=== PATIENT | female | born 1950 | race American Indian/Alaskan Native ===

== ENCOUNTER 2020-07-04 11:21 | Emergency (ER) | payer MEDICARE ==
[2020-07-04] MEDS ORDERED: SODIUM CHLORIDE 0.9% 1000 ML 1,000 ML IV ONE (11:51)
[2020-07-04 13:44] LABS: Hematocrit 25.6 % (30.3-42.9); Mean Corpuscular HGB Conc 31 % (30-34); Mean Corpuscular Volume 98 fl (79-97); Red Blood Count 2.62 M/mm3 (3.65-5.03)
[2020-07-04 13:50] LABS: Albumin 2.6 g/dL (3.9-5); Calcium 10.2 mg/dL (8.4-10.2)
[2020-07-04 13:53] LABS: INR 1.98 (0.87-1.13)
[2020-07-04 14:02] LABS: Partial Thromboplastin Time 68.3 Sec. (24.2-36.6)
--- NOTE | 2020-07-04 14:11 | Emergency Department Report ---
ED CPR HPI - General Chief Complaint: Cardiac Arrest/CPR Stated Complaint: CARDIAC ARREST Time Seen by Provider: 07/04/20 11:41 Source: family, EMS Mode of arrival: Stretcher Limitations: Other - History of Present Illness Initial Comments: Chief complaint: Cardiac arrest HPI: This is a 70-year-old female with history of COPD, breast cancer in remission, end-stage renal disease on hemodialysis Sunday who presents in cardiac arrest. Daughter and son provided history. Patient had slurred speech. She seen lethargic. She had fecal incontinence. [facility] health team and transport team evaluated patient. Verbalized that medical staff realized that patient needed emergent care. When EMS arrived, patient was receiving chest compressions. Patient had stopped breathing. No pulse. PEA detected by paramedics. Patient was ventilated to Jacob airway. Patient received epinephrine. Blood sugar 23 on scene. Daughter and son provided further history: Patient was admitted for 3 weeks in May outside [facility]. Patient required mechanical ventilation for respiratory failure. Patient was discharged home. shelter facility was recommended. Daughter arranged for daily home health visits. Patient's last hemodialysis session was on . Patient was scheduled to receive dialysis today. Complaint: stopped breathing Place: home Initial Findings in the Field: no respirations, PEA ROSC in the Field: No Treatments Prior to Arrival: other airway device (Jacob airway), epinephrine mgs # (Epinephrine) - Related Data Allergies Allergy/AdvReac Type Severity Reaction Status Date / Time doxycycline Allergy Unknown Verified 07/04/20 12:25 lisinopril Allergy Unknown Verified 07/04/20 12:25 mupirocin [From Bactroban] Allergy Unknown Verified 07/04/20 12:25 sulfamethoxazole Allergy Unknown Verified 07/04/20 12:25 [From Bactrim] trimethoprim [From Bactrim] Allergy Unknown Verified 07/04/20 12:25 ED Review of Systems ROS: Stated complaint: CARDIAC ARREST Other details as noted in HPI Comment: Unobtainable due to pts medical conditions (Cardiac arrest) ED Past Medical Hx - Past Medical History Previous Medical History?: Yes Hx Diabetes: Yes Hx Renal Disease: Yes (End-stage renal disease) Hx COPD: Yes - Surgical History Past Surgical History?: Yes Additional Surgical History: Bilateral mastectomy, lymph node dissection, AV fistula - Social History Smoking Status: Never Smoker ED Physical Exam - General Limitations: Other (Cardiac arrest unresponsive patient) General appearance: other - Head Head exam: Present: atraumatic, normocephalic - Eye Eye exam: Present: other (Fixed dilated pupils) - ENT ENT exam: Present: mucous membranes dry, other (No oropharyngeal lesions, pale mucosa) - Neck Neck exam: Present: normal inspection, full ROM, other (Prominent JVD in supine position) - Respiratory Respiratory exam: Present: other (Equal breath sounds with bag ventilation,) - Cardiovascular Cardiovascular Exam: Present: regular rate, normal rhythm, other (Tachycardia, palpable carotid pulse). Absent: systolic murmur, diastolic murmur - GI/Abdominal GI/Abdominal exam: Present: soft, distended, other (Severe abdominal distention, dull to percussion) - Extremities Exam Extremities exam: Present: other (No deformity, no traumatic injury, hyperpigmented thickened skin in the pretibial regions) - Neurological Exam Neurological exam: Present: other (No response to voice or pain, body tone is limp) - Psychiatric Psychiatric exam: Present: other (Eyes half open, no attempt to speak) - Skin Skin exam: Present: intact, pallor ED Course Vital Signs 07/04/20 12:23 Pulse Rate 84 O2 Sat by Pulse 94 Oximetry ED Medical Decision Making - Lab Data Result diagrams: 07/04/20 12:35 07/04/20 12:35 Laboratory Results - last 24 hr 07/04/20 07/04/20 07/04/20 12:35 12:35 12:35 WBC 2.7 L RBC 2.62 L Hgb 8.0 L Hct 25.6 L MCV 98 H MCH 31 MCHC 31 RDW 16.0 H Plt Count 88 L Lymph % (Auto) Hospitality Job Titles Imperial % (Auto) Hospitality Job Titles Add Manual Diff Complete Total Counted 100 Seg Neutrophils % Hospitality Job Titles Seg Neuts % (Manual) 22.0 L Lymphocytes % (Manual) 67.0 H Monocytes % (Manual) 11.0 H Nucleated RBC % Not Reportable Seg Neutrophils # Man 0.6 L Band Neutrophils # 0.0 Lymphocytes # (Manual) 1.8 Abs React Lymphs (Man) 0.0 Monocytes # (Manual) 0.3 Eosinophils # (Manual) 0.0 Basophils # (Manual) 0.0 Metamyelocytes # 0.0 Myelocytes # 0.0 Promyelocytes # 0.0 Blast Cells # 0.0 WBC Morphology Not Reportable Hypersegmented Neuts Not Reportable Hyposegmented Neuts Not Reportable Hypogranular Neuts Not Reportable Smudge Cells Not Reportable Toxic Granulation Not Reportable Toxic Vacuolation Not Reportable Dohle Bodies Not Reportable Pelger-Huet Anomaly Not Reportable Janice Rods Not Reportable Platelet Estimate Not Reportable Clumped Platelets Not Reportable Plt Clumps, EDTA Not Reportable Large Platelets Not Reportable Giant Platelets Not Reportable Platelet Satelliting Not Reportable Plt Morphology Comment Not Reportable RBC Morphology Not Reportable Dimorphic RBCs Not Reportable Polychromasia Not Reportable Hypochromasia Not Reportable Poikilocytosis 1+ Anisocytosis Not Reportable Microcytosis Not Reportable Macrocytosis Not Reportable Spherocytes Not Reportable Pappenheimer Bodies Not Reportable Sickle Cells Not Reportable Target Cells Not Reportable Tear Drop Cells Not Reportable Ovalocytes Not Reportable Helmet Cells Not Reportable [place] [employer] Bodies Not Reportable [place] Rings Not Reportable Russ Cells 1+ Bite Cells Not Reportable Crenated Cell Not Reportable Elliptocytes Not Reportable Acanthocytes (Spur) Not Reportable Rouleaux Not Reportable Hemoglobin C Crystals Not Reportable Schistocytes Not Reportable Malaria parasites Not Reportable [place] Bodies Not Reportable Hem Pathologist Commnt No PT 22.6 H INR 1.98 H APTT 68.3 H* Sodium 139 Potassium 5.4 H Chloride 95.2 L Carbon Dioxide 14 L Anion Gap 35 BUN 73 H Creatinine 7.3 H Estimated GFR 7 BUN/Creatinine Ratio 10 Glucose 147 H Lactic Acid Calcium 10.2 Total Bilirubin 1.70 H AST 84 H ALT 38 Alkaline Phosphatase 209 H Troponin T 0.341 H* Total Protein 5.9 L Albumin 2.6 L Albumin/Globulin Ratio 0.8 Triglycerides 129 Cholesterol 72 LDL Cholesterol Direct 15 L HDL Cholesterol 24 L Cholesterol/HDL Ratio 3.00 TSH 07/04/20 07/04/20 12:35 12:35 WBC RBC Hgb Hct MCV MCH MCHC RDW Plt Count Lymph % (Auto) [place] % (Auto) Add Manual Diff Total Counted Seg Neutrophils % Seg Neuts % (Manual) Lymphocytes % (Manual) Monocytes % (Manual) Nucleated RBC % Seg Neutrophils # Man Band Neutrophils # Lymphocytes # (Manual) Abs React Lymphs (Man) Monocytes # (Manual) Eosinophils # (Manual) Basophils # (Manual) Metamyelocytes # Myelocytes # Promyelocytes # Blast Cells # WBC Morphology Hypersegmented Neuts Hyposegmented Neuts Hypogranular Neuts Smudge Cells Toxic Granulation Toxic Vacuolation Dohle Bodies Pelger-Huet Anomaly Janice Rods Platelet Estimate Clumped Platelets Plt Clumps, EDTA Large Platelets Giant Platelets Platelet Satelliting Plt Morphology Comment RBC Morphology Dimorphic RBCs Polychromasia Hypochromasia Poikilocytosis Anisocytosis Microcytosis Macrocytosis Spherocytes Pappenheimer Bodies Sickle Cells Target Cells Tear Drop Cells Ovalocytes Helmet Cells [place] [employer] Bodies [place] Rings Russ Cells Bite Cells Crenated Cell Elliptocytes Acanthocytes (Spur) Rouleaux Hemoglobin C Crystals Schistocytes Malaria parasites [place] Bodies Hem Pathologist Commnt PT INR APTT Sodium Potassium Chloride Carbon Dioxide Anion Gap BUN Creatinine Estimated GFR BUN/Creatinine Ratio Glucose Lactic Acid 15.50 H* Calcium Total Bilirubin AST ALT Alkaline Phosphatase Troponin T Total Protein Albumin Albumin/Globulin Ratio Triglycerides Cholesterol LDL Cholesterol Direct HDL Cholesterol Cholesterol/HDL Ratio TSH 8.530 H - Medical Decision Making Mrs. Pederson is a 70-year-old female with history of end-stage renal disease, COPD, diabetes mellitus, breast cancer in remission who presents in cardiac ar rest. Chest compressions were continued upon patient's arrival. Upon rhythm check, patient rhythm was sinus tachycardia with strong carotid pulse. I then emergently intubated the patient exchanging Jacob airway with ETT. Patient had hypotension initially. While preparing to place CVL, PEA cardiac arrest ensued with bradycardia. After resuscitation ROSC was achieved. Approximately 20 minutes thereafter PEA bradycardic cardiac arrest again ensued. Third attempt at resuscitation was not successful in achieving Ross. Time of 1331. Critical Care Time: Yes Critical care time in (mins) excluding proc time.: 110 Critical care attestation.: If time is entered above; I have spent that time in minutes in the direct care of this critically ill patient, excluding procedure time. 110 minutes of critical care time excluding procedures were used in the care of the patient. I came immediately to the bedside upon patient's arrival. I obtained history from EMS at the bedside. I discussed treatment plan with the nursing team members. I reviewed electronic record. I kept the family members informed. Patient required multiple interventions and reassessments. I had extensive conversation with patient's family throughout the patient's time in emergency department. I was unable to attend to other patients while taking care of Mrs. Pederson. ED Disposition Clinical Impression: Cardiac arrest, Acute hypoxemic respiratory failure Disposition: DC-20 Is pt being admited?: No Does the pt Need Aspirin: No Referrals: KALA CARDOZO MD [Primary Care Provider] - 3-5 Days Time of Disposition: 13:31
[2020-07-04 14:53] LABS: Total Cells Counted 100
[2020-07-04 14:54] LABS: Burr Cells 1+; Poikilocytosis 1+
[2020-07-04 15:01] LABS: Platelet Count 88 K/mm3 (140-440)
--- NOTE | 2020-07-04 15:28 | History and Physical Report ---
History of Present Illness Chief complaint: Unresponsive History of present illness: 70 YO Female with COPD, BrCa, ESRD on HD(M,W,F), DM, HTN presents to ED for evaluation. Patient is intubated and on ventilatory support at time of my evaluation and is unable to provide history. Patient history is provided by patient family who was available by telephone. As per family, the patient experienced a sudden onset of slurred speech and decreased level of consciousness and fecal incontinence. EMS was notified and upon arrival the patient was found to be in severe distress with asystolic arrest. Patient initiated on ACLS protocol and was intubated in the field and subsequently transported to [facility] for further care and evaluation. Patient seen and evaluated in the emergency department. All lab and imaging studies reviewed. Patient intubated and placed on ventilatory support. Patient found to have cardiac arr est with eventual return of perfusing cardiac rhythm, as well as acute hypoxemic respiratory failure. Patient admitted to ICU due to increased risk of development of multiple organ system dysfunction. No prior admission for review. No medication listed at time of admission for reconciliation. Advanced care planning conducted in the emergency department. Past History Past Medical History: cancer, COPD, diabetes, ESRD, hypertension Past Surgical History: mastectomy, Other (Dialysis access, lymph node dissection) Social history: . denies: smoking, alcohol abuse, prescription drug abuse Family history: diabetes, hypertension Medications and Allergies Allergies Allergy/AdvReac Type Severity Reaction Status Date / Time doxycycline Allergy Unknown Verified 07/04/20 12:25 lisinopril Allergy Unknown Verified 07/04/20 12:25 mupirocin [From Bactroban] Allergy Unknown Verified 07/04/20 12:25 sulfamethoxazole Allergy Unknown Verified 07/04/20 12:25 [From Bactrim] trimethoprim [From Bactrim] Allergy Unknown Verified 07/04/20 12:25 Review of Systems ROS unobtainable: due to endotracheal tube, due to mental status Exam - Constitutional Vitals: Temp Pulse Resp BP Pulse Ox 84 94 07/04/20 12:23 07/04/20 12:23 General appearance: Present: severe distress - EENT Eyes: Present: mydriasis ENT: hearing decreased - Neck Neck: Present: supple - Respiratory Respiratory effort: labored Respiratory: bilateral: diminished, rhonchi - Cardiovascular Rhythm: regularly irregular Heart Sounds: Present: S1 & S2 - Extremities Extremities: pulses symmetrical, No edema Peripheral Pulses: abnormal (Capillary refill greater than 3.5 seconds) - Abdominal General gastrointestinal: Present: soft, non-tender, non-distended, normal bowel sounds Female genitourinary: Present: normal - Integumentary Integumentary: Present: dry, clammy, decreased turgor - Musculoskeletal Musculoskeletal: generalized weakness - Psychiatric Psychiatric: no appropriate mood/affect, no intact judgment & insight, no memory intact - Neurologic Neurologic: no CNII-XII intact, focal deficits, no moves all extremities, no gait normal HEART Score - HEART Score Troponin: Troponin T 0.341 ng/mL (0.00-0.029) H* 07/04/20 12:35 Results - Labs CBC & Chem 7: 07/04/20 12:35 07/04/20 12:35 Labs: Abnormal lab results 07/04/20 07/04/20 07/04/20 Range/Units 12:35 12:35 12:35 WBC 2.7 L (4.5-11.0) K/mm3 RBC 2.62 L (3.65-5.03) M/mm3 Hgb 8.0 L (10.1-14.3) gm/dl Hct 25.6 L (30.3-42.9) % MCV 98 H (79-97) fl RDW 16.0 H (13.2-15.2) % Plt Count 88 L (140-440) K/mm3 Seg Neuts % (Manual) 22.0 L (40.0-70.0) % Lymphocytes % (Manual) 67.0 H (13.4-35.0) % Monocytes % (Manual) 11.0 H (0.0-7.3) % Seg Neutrophils # Man 0.6 L (1.8-7.7) K/mm3 PT 22.6 H (12.2-14.9) Sec. INR 1.98 H (0.87-1.13) APTT 68.3 H* (24.2-36.6) Sec. Potassium 5.4 H (3.6-5.0) mmol/L Chloride 95.2 L (98-107) mmol/L Carbon Dioxide 14 L (22-30) mmol/L BUN 73 H (7-17) mg/dL Creatinine 7.3 H (0.6-1.2) mg/dL Glucose 147 H (65-100) mg/dL Lactic Acid (0.7-2.0) mmol/L Total Bilirubin 1.70 H (0.1-1.2) mg/dL AST 84 H (5-40) units/L Alkaline Phosphatase 209 H (35-129) units/L Troponin T 0.341 H* (0.00-0.029) ng/mL Total Protein 5.9 L (6.3-8.2) g/dL Albumin 2.6 L (3.9-5) g/dL LDL Cholesterol Direct 15 L (50-130) mg/dL HDL Cholesterol 24 L (40-59) mg/dL TSH (0.270-4.200) mlU/mL 07/04/20 07/04/20 Range/Units 12:35 12:35 WBC (4.5-11.0) K/mm3 RBC (3.65-5.03) M/mm3 Hgb (10.1-14.3) gm/dl Hct (30.3-42.9) % MCV (79-97) fl RDW (13.2-15.2) % Plt Count (140-440) K/mm3 Seg Neuts % (Manual) (40.0-70.0) % Lymphocytes % (Manual) (13.4-35.0) % Monocytes % (Manual) (0.0-7.3) % Seg Neutrophils # Man (1.8-7.7) K/mm3 PT (12.2-14.9) Sec. INR (0.87-1.13) APTT (24.2-36.6) Sec. Potassium (3.6-5.0) mmol/L Chloride (98-107) mmol/L Carbon Dioxide (22-30) mmol/L BUN (7-17) mg/dL Creatinine (0.6-1.2) mg/dL Glucose (65-100) mg/dL Lactic Acid 15.50 H* (0.7-2.0) mmol/L Total Bilirubin (0.1-1.2) mg/dL AST (5-40) units/L Alkaline Phosphatase (35-129) units/L Troponin T (0.00-0.029) ng/mL Total Protein (6.3-8.2) g/dL Albumin (3.9-5) g/dL LDL Cholesterol Direct (50-130) mg/dL HDL Cholesterol (40-59) mg/dL TSH 8.530 H (0.270-4.200) mlU/mL Assessment and Plan - Patient Problems (1) Acute hypoxemic respiratory failure Current Visit: Yes Status: Acute Plan to address problem: Patient intubated, on ventilatory support. Wean vent as tolerated, daily spontaneous breathing trial, arterial blood gas, chest x-ray, patient has poor prognosis. Continue supportive care. The high probability of a clinically significant, sudden or life threatening deterioration of the [pulmonary, cardiac, neuro, renal] system(s) required my full and direct attention, intervention and personal management. The aggregate critical care time was [65] minutes. This time is in addition to time spent performing reported procedures but includes the following: [x] Data Review and interpretation [x] Patient assessment and monitoring of vital signs [x] Documentation [x] Medication orders and management (2) Cardiac arrest Current Visit: Yes Status: Acute Plan to address problem: Patient has poor prognosis. Patient arrived to [facility] emergency department status post cardiac arrest and intubation in the field. Patient treated in accordance with ACLS protocol with return of perfusing cardiac rhythm. Patient experienced repeat asystolic arrest. Patient treated" with ACLS protocol. Patient found to have asystole. Patient found to have pupillary exam with pupils fixed and dilated, absence of spontaneous respiration. Patient pronounced in the emergency department. (3) Advance care planning Current Visit: Yes Status: Acute Plan to address problem: Disease education conducted, prognosis discussed. Patient is full code, patient family acknowledges poor prognosis and acknowledges understanding and agreement with care plan. +30 minutes.
== END 2020-07-04 17:22 ==
LOC: ED 11:21
DX: I46.9 Cardiac arrest, cause unspecified (principal); J96.01 Acute respiratory failure with hypoxia; E11.9 Type 2 diabetes mellitus without complications; J44.9 Chronic obstructive pulmonary disease, unspecified; Z79.899 Other long term (current) drug therapy; Z98.890 Other specified postprocedural states; Z88.8 Allergy status to other drugs, medicaments and biological substances
CPT/HCPCS: 31500; 36415; 80053; 80061; 82140; 84443; 84484; 85007; 85025; 85610; 85730; 87040; 92950; 93005; 99291; 99292; J7030; 94002